=== PATIENT | male | born 1985 | race African-American/Black ===

== ENCOUNTER 2019-01-06 21:42 | Emergency (ER) | payer SELFPAY ==
[~2019-01-06] VITALS: Ht 172.7 cm; Wt 44.0 kg
[2019-01-06] MEDS ORDERED: FLUORESCEIN SOD(OPTH) 1 MG STRP ONE (22:00)
[2019-01-06] MEDS ORDERED: ERYTHROMYCIN (OPTH) 3.5 GM OINT OP ONE ×2 (22:11→22:15)
[2019-01-06] MEDS ORDERED: TETRACAINE HCL 0.5% OPTH SOLN 4 ML BTL OP ONE (22:15)
== END 2019-01-06 22:18 | disposition home or self-care (01) ==
LOC: FSED 21:42
DX: H57.11 Ocular pain, right eye (principal); S05.01XA Injury of conjunctiva and corneal abrasion without foreign body, right eye, initial encounter
CPT/HCPCS: 99283

== ENCOUNTER 2020-09-26 22:28 | Emergency (ER) | payer SELFPAY ==
[~2020-09-26] VITALS: Ht 172.7 cm; Wt 90.7 kg
== END 2020-09-26 23:05 | disposition home or self-care (01) ==
LOC: FSED 22:44
DX: K62.89 Other specified diseases of anus and rectum (principal); K64.9 Unspecified hemorrhoids
CPT/HCPCS: 99282